=== PATIENT | female | born 1970 | race Caucasian/White ===

== ENCOUNTER 2020-05-04 07:33 | Emergency (ER) | payer OTHER ==
[2020-05-04 08:11] LABS: ABSOLUTE BASOPHILS # (AUTO) 0.1 10^3/uL (0.0-0.2); ABSOLUTE EOSINOPHILS # (AUTO) 0.2 10^3/uL (0.0-0.6); ABSOLUTE LYMPHOCYTES (AUTO) 1.9 10^3/uL (0.5-4.7); ABSOLUTE MONOCYTES (AUTO) 0.6 10^3/uL (0.1-1.4); ABSOLUTE NEUT (AUTO) 3.2 10^3/uL (1.7-8.2); BASOPHILS % (AUTO) 0.8 % (0-2); EOSINOPHILS % (AUTO) 3.2 % (0-6); HEMATOCRIT 36.8 % (36.0-47.0); HEMOGLOBIN 12.6 g/dL (12.0-15.5); LYMPHOCYTES % (AUTO) 32.3 % (13-45); MEAN CORPUSCULAR HEMOGLOBIN 31.6 pg (27.0-33.4); MEAN CORPUSCULAR HGB CONC 34.1 g/dL (32.0-36.0); MEAN CORPUSCULAR VOLUME 93 fl (80-97); MONOCYTES % (AUTO) 9.3 % (3-13); PLATELET COUNT 254 10^3/uL (150-450); RED BLOOD COUNT 3.97 10^6/uL (3.72-5.28); RED CELL DISTRIBUTION WIDTH 12.7 % (11.5-14.0); SEGMENTED NEUTROPHILS % (AUTO) 54.4 % (42-78); TOTAL CELLS COUNTED % (AUTO) 100 %
[2020-05-04 08:25] LABS: ALBUMIN 4.3 g/dL (3.5-5.0); ALKALINE PHOSPHATASE 69 U/L (38-126); ANION GAP 9 (5-19); ASPARTATE AMINO TRANSFERASE 32 U/L (14-36); BILIRUBIN,DIRECT 0.3 mg/dL (0.0-0.4); BILIRUBIN,TOTAL 0.8 mg/dL (0.2-1.3); BLOOD UREA NITROGEN 16 mg/dL (7-20); CARBON DIOXIDE 26 mmol/L (22-30); CHLORIDE 105 mmol/L (98-107); CREATINE KINASE 64 U/L (30-135); GLUCOSE 91 mg/dL (75-110); POTASSIUM 4.1 mmol/L (3.6-5.0); TOTAL PROTEIN 7.2 g/dL (6.3-8.2)
--- NOTE | 2020-05-04 08:32 | RADIOLOGY REPORT (SQ) ---
EXAM DESCRIPTION: CHEST SINGLE VIEW IMAGES COMPLETED DATE/TIME: 05/04/2020 8:13 am REASON FOR STUDY: chest pain COMPARISON: None. EXAM PARAMETERS: NUMBER OF VIEWS: One view. TECHNIQUE: Single frontal radiographic view of the chest acquired. RADIATION DOSE: NA LIMITATIONS: None. FINDINGS: LUNGS AND PLEURA: No opacities, masses or pneumothorax. No pleural effusion. MEDIASTINUM AND HILAR STRUCTURES: No masses. Contour normal. HEART AND VASCULAR STRUCTURES: Heart normal in size. Normal vasculature. BONES: No acute findings. HARDWARE: None in the chest. OTHER: No other significant finding. IMPRESSION: NO ACUTE RADIOGRAPHIC FINDING IN THE CHEST. TECHNICAL DOCUMENTATION: JOB ID: [id number] 2010 [employer]- All Rights Reserved Reading location - IP/workstation name: [email or web address]
[2020-05-04 08:35] LABS: CREATINE KINASE MB 0.55 ng/mL (<4.55)
[2020-05-04 08:42] LABS: TROPONIN I < 0.012 ng/mL
--- NOTE | 2020-05-04 09:25 | ER Document Report ---
ED Cardiac - General Chief Complaint: Chest Pain Stated Complaint: CHEST PAIN Notes: 50-year-old female presenting today with chest pain and tightness starting this morning at 5 AM. States that she woke up and she felt a squeezing type sensation to her right chest that radiated to her back and towards her right neck. She sat up out of bed she said she felt flush. Patient says the pain has been intermittent since the time of onset. Patient is currently not exper iencing the pain. She says her last episode of pain was approximately an hour ago. She has not taken anything for the pain. She has no history of acid reflux. No history of heart disease. She does have a strong family history of MIs on her dad's side at the age of 40-50. Her father at the age of 55 due to an [place]. She does not smoke. She d does drink alcohol daily. She is on vacation at this time. She is staying at [place]. She denies any fevers, chills, or additional symptoms at this time. - Related Data Allergies/Adverse Reactions: IV Contrast Dye Allergy (Uncoded 05/04/20 07:45) Hives Home Medications: Escitalopram Past Medical History - Social History Smoking Status: Never Smoker Chew tobacco use (# tins/day): No Frequency of alcohol use: Heavy Drug Abuse: None Family History: Reviewed & Not Pertinent Neurological Medical History: Reports: Hx Migraine Past Surgical History: Reports: Hx Oral Surgery - [place] teeth, Hx Tonsillectomy, Hx Tubal Ligation Review of Systems - Review of Systems Constitutional: No symptoms reported EENT: No symptoms reported Cardiovascular: See HPI Respiratory: No symptoms reported Gastrointestinal: No symptoms reported Genitourinary: No symptoms reported Female Genitourinary: No symptoms reported Musculoskeletal: No symptoms reported Skin: No symptoms reported Hematologic/Lymphatic: No symptoms reported Neurological/Psychological: No symptoms reported Physical Exam - Vital signs Vitals: Pulse Ox 98 05/04/20 07:58 Interpretation: Normal - Notes Notes: Adult General: GENERAL: Alert, interacts well. No acute distress HEAD: Normocephalic, atraumatic EYES: Pupils equal, round and reactive to light. Extraocular movements intact. ENT: Airway patent. Nares patent. NECK: Full range of motion. Supple. Trachea midline. No lymphadenopathy. LUNGS: Clear to auscultation bilaterally, no wheezes, rales, or rhonchi. No respiratory distress. Nontender chest wall. HEART: Regular rate and rhythm. No murmurs, rubs or gallops. ABDOMEN: Soft, nontender. Nondistended. (-) Ponce sign. Bowel sounds present in all 4 quadrants. No rebound, guarding or masses. GENITOURINARY: Deferred EXTREMITIES: Moves all 4 extremities spontaneously. No edema, normal radial and dorsal pedis pulses bilaterally. No cyanosis. BACK: No cervical, thoracic, lumbar midline tenderness. No saddle anesthesia, normal distal neurovascular exam. Moves all extremities with full range of motion. NEUROLOGICAL: Alert and oriented x3. Normal speech. Cranial nerves II through XII grossly intact. Strength 5/ 5 in all extremities. PSYCH: Normal affect, normal mood. SKIN: Warm, dry, normal turgor. No rashes or lesions noted. Course - Re-evaluation Re-evalutation: 05/04/20 09:23 Patient CBC, CMP are unremarkable. Patient's chest x-ray shows no acute findings no masses, no cardiomegaly. Her initial troponin is negative. Her EKG is sinus rhythm at 77 bpm, IN interval of 168, QTC of 440. There is some flattening of T waves in V1 and V2. There is no prior comparison at this time. Her heart score is based on age and risk factors (strong family history) History score 0 EKG score 0 Age score 1 Risk Factors score 1 Initial Troponin score 0. Patient does not feel she is in pain at this time. Pending second troponin at this time. She does report improvement and decrease in her pain since being in the ER. 05/04/20 11:20 Patient second troponin is negative. Patient is heart score 2 I discussed with patient that, based on their age, risk factors and emergency department testing today, the likelihood that their symptoms are related to a heart attack is very low (estimated risk of heart attack or over the next 30 days of less than 1%). The patient demonstrates decision making capacity and has verbalized an understanding of these risks to me. Based on this, I am comfortable discharging the patient with close outpatient follow up. I recommend she follows up with her primary care as soon as possible and to see a track template maker as soon as possible. Her symptoms may be due to acid reflux. She may use otc prilosec. Usual chest pain return precautions reviewed. The patient states understanding and agreement with this plan. - Vital Signs Vital signs: Temp Pulse Resp BP Pulse Ox 98.2 F 13 125/69 100 05/04/20 11:50 05/04/20 11:01 05/04/20 11:01 05/04/20 11:01 - Laboratory Result Diagrams: 05/04/20 07:50 05/04/20 07:50 Discharge - Discharge Clinical Impression: Chest pain Qualifiers: Chest pain type: unspecified Qualified Code(s): R07.9 - Chest pain, unspecified Condition: Stable Disposition: HOME, SELF-CARE Instructions: Chest Pain of Unclear Cause ([facility]) Additional Instructions: Your work-up in the emergency department has been unremarkable at this time. I do not have a clear etiology as to the cause of your symptoms at this time. You can try [id number] Prilosec to see if this helps alleviate your symptoms as they may be due to acid reflux. Please follow-up with your primary care provider as soon as possible. Please also follow-up with a track template maker as soon as possible. Please return the emergency department for any worsening symptoms or development of new symptoms.
[2020-05-04] MEDS ORDERED: LIDOCAINE 2% VISCOUS SOLN 15 ML UDCUP PO ONE (10:40)
[2020-05-04] MEDS ORDERED: MAG HYDROX/AL HYDROX/SIMETH SUSP 30 ML UDCUP PO ONE (10:40)
[2020-05-04] MEDS ORDERED: METOCLOPRAMIDE HCL ORAL SOLN 10 MG/10 ML UDCUP PO ONE (10:40)
[2020-05-04 11:09] VITALS: BP 125/69
[2020-05-04] MEDS ORDERED: ASPIRIN 81 MG TABLET, CHEWABLE PO ONE (11:27)
--- NOTE | 2020-05-04 20:16 | EKG REPORT ---
SEVERITY:- BORDERLINE ECG - SINUS RHYTHM PROBABLE LEFT ATRIAL ABNORMALITY : Confirmed by: Mara Martinez MD 04-May-2020 20:15:53
== END 2020-05-04 11:50 | disposition home or self-care (01) ==
LOC: ER 07:33
DX: R07.9 Chest pain, unspecified (principal); M54.9 Dorsalgia, unspecified; M54.2 Cervicalgia
CPT/HCPCS: 93005; 99285; 36415; 82553; 82550; 85025; 80053; 84484; 71045; 93010; J3490